=== PATIENT | male | born 1950 | race Caucasian/White ===

== ENCOUNTER 2022-05-12 00:12 | Emergency (ER) | payer MEDICARE, SELFPAY ==
--- NOTE | 2022-05-12 00:36 | XRR_ITS ---
PROCEDURE INFORMATION: Exam: XR Right Femur Exam date and time: 05/12/2022 2:35 AM Age: 72 years old Clinical indication: Pain; Thigh; Right; Additional info: Trauma TECHNIQUE: Imaging protocol: Radiologic exam of the Right femur. Views: 2 views. COMPARISON: No relevant prior studies available. FINDINGS: Bones/joints: There is normal alignment without fractures or dislocations. The visualized adjacent knee region shows small degenerative osteophytes and degenerative changes. The visualized hip region shows [id number] hip joint space narrowing with small osteophytes, suggestive of osteoarthritic change. Moderate visualized symphysis pubis degenerative changes are seen. Soft tissues: There is no soft tissue swelling or radiopaque foreign bodies. Notes: If there is further concern, recommend follow-up radiographs or bone scan for complete assessment. XR/XR femur RT min 2V* [id number] IMPRESSION: No fractures or dislocation of the right femur.
--- NOTE | 2022-05-12 00:36 | XRR_ITS ---
PROCEDURE INFORMATION: Exam: XR Right Knee Exam date and time: 05/12/2022 2:41 AM Age: 72 years old Clinical indication: Pain; Knee; Right; Additional info: Trauma TECHNIQUE: Imaging protocol: Radiologic exam of the Right knee. Views: 3 views. AP Obilque Lateral COMPARISON: No relevant prior studies available. FINDINGS: Bones/joints: There are 3 compartment small degenerative osteophytes with some tibial spine degenerative osteophytes. There are no fractures or dislocations. There are no joint bodies. No joint effusion. Soft tissues: There are no radiopaque foreign bodies. Notes: If there is further concern, recommend follow-up radiographs or MRI for complete assessment. XR/XR knee RT 3V* [id number] IMPRESSION: No fracture or dislocation of the right knee.
[2022-05-12 01:35] VITALS: BP 125/52; PULSE 51; RESP 18; TEMP 36.6; O2SAT 98; BMI 43.8
--- NOTE | 2022-05-12 09:58 | ED_ITS ---
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 Pt dnies hitting his head or any LOC. Pt is not on blood thinners. 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 Associated symptoms: Denies abdominal pain, back pain, chest pain, chills, confusion, dental pain, diaphoresis, dizziness, fever(s), headache(s), nausea, syncope or vomiting Review of Systems Const: Denies: fever(s), chills, body aches, change in appetite, change in weight, fatigue, malaise or diaphoresis Eyes: Denies: change in vision, blurry vision, blind spots, photophobia, eye discomfort, eye discharge, eye redness, floaters or seeing flashes ENMT: Denies: throat pain, uvular edema, enlarged tonsils, odynophagia, hoarseness, mouth pain, swelling of lips/tongue, oral sores, bleeding gums, dental pain, dry mouth, ear or mastoid pain, ear discharge, change in hearing, tinnitus, disequilibrium, nasal discharge, nasal congestion, post nasal drip or sinus pain Card: Denies: chest pain, palpitations, irregular heart rhythm, edema, swelling of feet/ankles, lightheadedness, syncope, pre-syncope, dyspnea on exertion, orthopnea, leg pain with exertion or acrocyanosis Resp: Denies: dyspnea, productive cough, non-productive cough, wheezing, stri linnea, pain on inspiration, change in phlegm color, hemoptysis or chest congestion GI: Denies: abdominal pain, nausea, vomiting, hematemesis, dysphagia, diarrhea, constipation, GI cramping, change in bowel habits or rectal pain : Denies: flank pain, dysuria, urinary frequency, urinary urgency, urinary hesitancy or hematuria Musc: Reports: extremity pain; Denies: neck pain, back pain, extremity swelling, joint pain, joint swelling, joint redness, joint warmth or deformity Skin/Breast: Denies: rash, pruritus, erythema, sores, new lesions, changes in skin color or dry skin Neuro: Denies: headache(s), numbness in extremities, weakness in extremities, sensory changes, lack of coordination, difficulty walking, frequent falls, dizziness, vertigo, confusion, behavioral changes, Slurred speech present, difficulty communicating thoughts or seizure-like activity Psych: Denies: anxiety, depression, suicidal ideation or homicidal ideation Endo: Denies: polyuria, polydipsia, tired all the time, cold intolerance, excessive sweating, flushing, hot flashes or heat intolerance Isaac/Lymph: Denies: easy bruising, easy bleeding, petechiae, purpura, enlarged lymph nodes or tender lymph nodes All/Imm: Denies: urticaria, throat swelling, tongue swelling, facial swelling, acute wheezing or itchy eyes Physical Exam Const: COMMON NORMALS: no acute distress, average body habitus, patient oriented x3, no limitations, healthy appearing, alert and well nourished HENMT: COMMON NORMALS: normocephalic, atraumatic, hearing grossly normal bilaterally, external ears normal, EAC's normal, TM's normal bilaterally, Normal external nose present, Normal nasal mucous membranes and turbinates present, moist oral mucous membranes, oropharynx normal, dentition normal and gingiva normal HEAD & SCALP: normocephalic and atraumatic NOSE: Normal external nose present and Normal nasal mucous membranes and turbinates present E XTERNAL EAR: Yes external ears normal EXTERNAL AUDITORY CANAL: EAC's normal TYMPANIC MEMBRANE: TM's normal bilaterally THROAT: no uvular edema Neck/C-Spine: COMMON NORMALS: full ROM, no lymphadenopathy, supple, no meningeal signs, no JVD, Thyroid normal and No carotid bruits THYROID: Thyroid normal Chest: COMMONS NORMALS: normal inspection of the chest, normal palpation of entire chest wall, normal inspection of the breasts and normal palpation of the breasts Breast/axilla inspection: Yes normal inspection of the breasts TRISH AST/AXILLA PALPATION: Yes normal palpation of the breasts Resp: COMMON NORMALS: normal respiratory effort, No retractions, No use of a ccessory muscles, clear to auscultation bilaterally and percussion normal AUSCULTATION: clear to auscultation bilaterally PERCUSSION: percussion normal Cardio: COMMON NORMALS: no JVD, regular rate and regular rhythm RATE: regular rate RHYTHM: regular rhythm : COMMON NORMALS: Yes no CVA tenderness BLADDER/KIDNEY EXAM: Yes no CVA tenderness Back/Pelvis: COMMON NORMALS: no CVA tenderness, thoracic and lumbar spine normal to inspection, no thoracic nor lumbar tenderness, thoraco-lumbar ROM normal and straight leg raise negative bilaterally Extremity: OTHER: tenderness noted to right medial aspect of thigh and right knee Neuro: COMMON NORMALS: patient oriented x3 SENSORIUM/ORIENTATION: Yes alert MENINGEAL SIGNS: Yes no meningeal signs Course Vital Signs: Vital signs: Vital Signs Temperature 97.8 F 05/12/22 01:35 Pulse Rate 51 L 05/12/22 01:35 Respiratory Rate 18 05/12/22 01:35 Blood Pressure 125/52 05/12/22 01:35 Pulse Oximetry 98 05/12/22 01:35 MDM - Trauma Medical Decision Making Patient is well appearing non toxic and in no acute distress. 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 Pt dnies hitting his head or any LOC. Pt is not on blood thinners. 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 Pt is NVI distally. will dc home Lab Data Radiology Impressions Femur X-Ray 05/12/22 00:36 IMPRESSION: No fractures or dislocation of the right femur. Knee X-Ray 05/12/22 00:36 IMPRESSION: No fracture or dislocation of the right knee. 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
== END 2022-05-12 02:52 | disposition home or self-care (01) ==
PROVIDERS: Emergency Provider Registered Nurse
DX: S70.11XA Contusion of right thigh, initial encounter (principal); V84.5XXA Driver of special agricultural vehicle injured in nontraffic accident, initial encounter
CPT/HCPCS: 73552; 73562; 99283

== ENCOUNTER 2023-04-07 10:29 | Outpatient (CLI) | payer MEDICARE, SELFPAY ==
--- NOTE | 2023-04-07 10:55 | XRR_ITS ---
PROCEDURE INFORMATION: Exam: XR Right Hand Exam date and time: 04/07/2023 11:01 AM Age: 73 years old Clinical indication: Pain and injury or trauma; Other: Caught falling cabinet; Sprain or strain; Right; Injury date: 04/04/23; Injury details: Caught a falling cabinet. RT hand/wrist pain with swelling x Friday; Additional info: R hand pain TECHNIQUE: Imaging protocol: Radiologic exam of the right hand. Views: 1 or 2 views. COMPARISON: No relevant prior studies available. FINDINGS: Bones/joints: No fracture. The joint spaces are well maintained. Degenerative joint space narrowing in the proximal interphalangeal joints. Soft tissues: Unremarkable. XR/XR hand RT 2V [id number] IMPRESSION: No evidence of acute fracture or dislocation.
== END 2023-04-07 10:30 | disposition home or self-care (01) ==
PROVIDERS: PCP Nurse Practitioner Family; Visit Provider Nurse Practitioner Family
DX: M79.641 Pain in right hand (principal)
CPT/HCPCS: 73120

== ENCOUNTER → 2023-05-13 10:52 | Outpatient (BNVA) | payer MEDICARE, SELFPAY | PROVIDERS: PCP Nurse Practitioner Family; Visit Provider Surgery | DX: R19.5 Other fecal abnormalities (principal) | CPT/HCPCS: 99204 ==

== ENCOUNTER 2023-08-06 06:00 | Outpatient (RCR) | payer MEDICARE, SELFPAY | END 2023-08-07 23:59 | disposition home or self-care (01) | LOC: TPT 06:00 | PROVIDERS: PCP Nurse Practitioner Family; Visit Provider Nurse Practitioner Family | DX: M79.604 Pain in right leg (principal) | CPT/HCPCS: 97162 ==

== ENCOUNTER 2023-08-07 07:00 | Day surgery (SDC) | payer MEDICARE, SELFPAY ==
--- NOTE | 2023-08-07 06:46 | W.PM.OPSFHP ---
Same Day Surgery H&P Indication for Procedure/HPI DATE OF PROCEDURE: August 07, 2023 CHIEF COMPLAINT/INDICATIONFOR SURGICAL PROCEDURE: positive FOBT PREOP DIAGNOSIS: GI Bleeding PLANNED PROCEDURE: Operation Date: 08/07/23 08:00 Proposed Procedures p Colonoscopy 13568,R19.5(Not Applicable) - Michelet Prieto MD Medications/Allergies* Home Medications Medication Instructions Recorded Confirmed Type atorvastatin 40 mg tablet 40 mg PO DAILY 08/04/23 08/04/23 History betamethasone dipropionate 0.05 % 1 applic topical BID PRN Outbreak 08/04/23 08/04/23 History topical ointment cholecalciferol (vitamin D3) 25 25 mcg PO DAILY 08/04/23 08/04/23 History mcg (1,000 unit) tablet (Vitamin D3) citalopram 20 mg tablet 20 mg PO DAILY 08/04/23 08/04/23 History cyanocobalamin (vitamin B-12) 25 25 mcg PO DAILY 08/04/23 08/04/23 History mcg tablet cyclobenzaprine 5 mg tablet 5 mg PO TID PRN Spasms 08/04/23 08/04/23 History glipizide 5 mg tablet 5 mg PO BID 08/04/23 08/04/23 History hydrochlorothiazide 25 mg tablet 25 mg PO DAILY 08/04/23 08/04/23 History lisinopril 5 mg tablet 5 mg PO DAILY 08/04/23 08/04/23 History magnesium citrate 100 mg tablet 100 mg PO DAILY 08/04/23 08/04/23 History metformin 500 mg tablet 500 mg PO BID 08/04/23 08/04/23 History omega-3 fatty acids-vitamin E 2 cap PO DAILY 08/04/23 08/04/23 History 1,000 mg capsule omeprazole 20 mg capsule,delayed 20 mg PO DAILY 08/04/23 08/04/23 History release tamsulosin 0.4 mg capsule 0.4 mg PO BEDTIME 08/04/23 08/04/23 History triamcinolone acetonide 0.1 % 1 applic topical BID PRN Outbreak 08/04/23 08/04/23 History topical ointment vitamin E 400 unit tablet 400 unit PO DAILY 08/04/23 08/04/23 History Allergies/Adverse Reactions Allergy/AdvReac Type Severity Reaction Status Date / Time No Known Allergies Allergy Verified 11/27/23 12:14 Pertinent Exam Findings alert, oriented x 3, clear to auscultation bilaterally and regular rate & rhythm Recommendations Surgery/Procedure today Coding Level of Care Code Acute Code for Chg Fwjohn
[2023-08-07 07:13] VITALS: BMI 41.8
[2023-08-07 07:17] VITALS: BP 142/72; PULSE 56; RESP 18; TEMP 36.2; O2SAT 98
[2023-08-07] MEDS: sodium chloride 0.9% 1,000 ML 30 ML IV (07:31)
[2023-08-07 07:35] LABS: Glucose Point of Care 119 mg/dL (70-110)
--- NOTE | 2023-08-07 07:58 | ANES.PREANE2 ---
Pre-Anesthetic Assessment Height/Weight: Height 1.73 m Weight 124.738 kg Temp Pulse Resp BP Pulse Ox O2 Del Method 97.1 F L 56 L 18 142/72 98 Room Air 08/07/23 07:17 08/07/23 07:17 08/07/23 07:17 08/07/23 07:17 08/07/23 07:17 08/07/23 07:17 Preop Diagnosis: GI Bleeding Operation Date: 08/07/23 08:00 Proposed Procedures p Colonoscopy 68955,R19.5(Not Applicable) - Michelet Prieto MD Familial anesthetic complications: none Was Beta Óscar taken within 24 hours: N/A Was Clonidine taken within 24 hours: N/A Last intake: Intake Last Liquid Date 08/06/23 Last Liquid Time 22:30 Last Solid Date 08/05/23 Last Solid Time 17:00 Social No alcohol and No tobacco Exam alert and oriented x 3 Airway Submandibular: within normal limits Cervical ROM: within normal limits Mallampati: Class I Dentition: partials (on top, glued in) Pulmonary None reported CV/HEM Hypertension None reported Hepatic None reported GI Gastroesophageal Reflux Disease Metabolic Diabetes Mellitus and Morbid Obesity [facility] [place] None reported Anesthetic Plan ASA status: 3 Anesthesia: Anesthesia Evaluation, General and MAC Medications/Allergies Home Medications Medication Instructions Recorded Confirmed Last Taken Type atorvastatin 40 mg tablet 40 mg PO DAILY 08/04/23 08/04/23 08/06/23 History betamethasone dipropionate 0.05 % 1 applic topical BID PRN Outbreak 08/04/23 08/04/23 08/04/23 History topical ointment cholecalciferol (vitamin D3) 25 25 mcg PO DAILY 08/04/23 08/04/23 08/06/23 History mcg (1,000 unit) tablet (Vitamin D3) citalopram 20 mg tablet 20 mg PO DAILY 08/04/23 08/04/23 08/06/23 History cyanocobalamin (vitamin B-12) 25 25 mcg PO DAILY 08/04/23 08/04/23 08/06/23 History mcg tablet cyclobenzaprine 5 mg tablet 5 mg PO TID PRN Spasms 08/04/23 08/04/23 08/04/23 History glipizide 5 mg tablet 5 mg PO BID 08/04/23 08/04/23 08/06/23 History hydrochlorothiazide 25 mg tablet 25 mg PO DAILY 08/04/23 08/04/23 08/06/23 History lisinopril 5 mg tablet 5 mg PO DAILY 08/04/23 08/04/23 08/06/23 History magnesium citrate 100 mg tablet 100 mg PO DAILY 08/04/23 08/04/23 08/06/23 History metformin 500 mg tablet 500 mg PO BID 08/04/23 08/04/23 08/06/23 History omega-3 fatty acids-vitamin E 2 cap PO DAILY 08/04/23 08/04/23 08/06/23 History 1,000 mg capsule omeprazole 20 mg capsule,delayed 20 mg PO DAILY 08/04/23 08/04/23 08/06/23 History release tamsulosin 0.4 mg capsule 0.4 mg PO BEDTIME 08/04/23 08/04/23 08/06/23 History triamcinolone acetonide 0.1 % 1 applic topical BID PRN Outbreak 08/04/23 08/04/23 08/04/23 History topical ointment vitamin E 400 unit tablet 400 unit PO DAILY 08/04/23 08/04/23 08/06/23 History Allergies Allergy/AdvReac Type Severity Reaction Status Date / Time No Known Allergies Allergy Verified 08/04/23 12:14 Current Medications Generic Name Dose Route Start Last Admin Trade Name Freq PRN Reason Stop Dose Admin Sodium Chloride 1,000 mls @ 30 mls/hr 08/07/23 07:15 08/07/23 07:31 Sodium Chloride 0.9% IV 08/08/23 07:14 30 mls/hr .Q24H SUSSY Administration Data Anesthesia Cardiac Studies: No Data to Display
[2023-08-07 08:34] VITALS: BP 100/54; PULSE 60; RESP 18; TEMP 36.8; O2SAT 98
--- NOTE | 2023-08-07 08:37 | ANE.PACU2 ---
Inpatient post-anesthesia follow up: Airway intact: Yes Vital signs: Temperature 97.1 F Pulse Rate 56 Respiratory Rate 18 Blood Pressure 142/72 Pulse Oximetry 98 Oxygen Delivery Me thod Room Air Oxygen Flow Rate Fraction of Inspir ed Oxygen Hydration adequate: Yes Nausea and vomiting: No Pain level: 1 Mental status: Baseline
[2023-08-07 08:59] VITALS: BP 149/62; PULSE 54; RESP 18; O2SAT 100
== END 2023-08-07 09:14 | disposition home or self-care (01) ==
PROVIDERS: PCP Nurse Practitioner Family; Visit Provider Surgery
PROC: 0DJD8ZZ Inspection of Lower Intestinal Tract, Via Natural or Artificial Opening Endoscopic (ICD-10-PCS; CPT 45378; principal; 2023-08-07 08:00)
DX: R19.5 Other fecal abnormalities (principal); K64.8 Other hemorrhoids; D12.2 Benign neoplasm of ascending colon; I10 Essential (primary) hypertension; K21.9 Gastro-esophageal reflux disease without esophagitis; E11.9 Type 2 diabetes mellitus without complications; E66.01 Morbid (severe) obesity due to excess calories; Z68.41 Body mass index [BMI] 40.0-44.9, adult
CPT/HCPCS: 36416; 45385; 82962; 88305; J2704; J7030

== ENCOUNTER 2023-08-08 06:00 | Outpatient (RCR) | payer MEDICARE, SELFPAY | END 2023-09-07 23:59 | disposition home or self-care (01) | LOC: TPT 06:00 | PROVIDERS: PCP Nurse Practitioner Family; Visit Provider Nurse Practitioner Family | DX: M79.604 Pain in right leg (principal) | CPT/HCPCS: 97110 ==

== ENCOUNTER → 2023-08-15 09:41 | Outpatient (BNVA) | payer MEDICARE, SELFPAY | PROVIDERS: PCP Nurse Practitioner Family; Visit Provider Surgery | DX: Z09 Encounter for follow-up examination after completed treatment for conditions other than malignant neoplasm (principal) | CPT/HCPCS: 99213 ==

== ENCOUNTER 2023-09-08 06:00 | Outpatient (RCR) | payer MEDICARE, SELFPAY | END 2023-10-08 23:59 | disposition home or self-care (01) | LOC: TPT 06:00 | PROVIDERS: PCP Nurse Practitioner Family; Visit Provider Nurse Practitioner Family | DX: M79.604 Pain in right leg (principal) | CPT/HCPCS: 97110 ==

== ENCOUNTER 2023-10-09 06:00 | Outpatient (RCR) | payer MEDICARE, SELFPAY | END 2023-11-06 23:59 | disposition home or self-care (01) | LOC: TPT 06:00 | PROVIDERS: PCP Nurse Practitioner Family; Visit Provider Nurse Practitioner Family | DX: M79.604 Pain in right leg (principal) | CPT/HCPCS: 97110 ==

== ENCOUNTER → 2024-02-06 08:17 | Outpatient (BNVA) | payer MEDICARE, SELFPAY | PROVIDERS: PCP Nurse Practitioner Family; Visit Provider Dermatology | DX: D48.5 Neoplasm of uncertain behavior of skin (principal); L82.1 Other seborrheic keratosis; D18.01 Hemangioma of skin and subcutaneous tissue; S80.861A Insect bite (nonvenomous), right lower leg, initial encounter; X58.XXXA Exposure to other specified factors, initial encounter | CPT/HCPCS: 10120; 11102; 17000; 99203 ==

== ENCOUNTER → 2024-03-08 14:05 | Outpatient (BNVA) | payer MEDICARE, SELFPAY | PROVIDERS: PCP Nurse Practitioner Family; Visit Provider Dermatology | DX: C44.42 Squamous cell carcinoma of skin of scalp and neck (principal) | CPT/HCPCS: 13121; 17311 ==

== ENCOUNTER → 2024-08-11 08:35 | Outpatient (BNVA) | payer MEDICARE, SELFPAY | PROVIDERS: PCP Nurse Practitioner Family; Visit Provider Nurse Practitioner Family | DX: D36.11 Benign neoplasm of peripheral nerves and autonomic nervous system of face, head, and neck (principal); B00.1 Herpesviral vesicular dermatitis; Z08 Encounter for follow-up examination after completed treatment for malignant neoplasm; Z85.828 Personal history of other malignant neoplasm of skin; D48.5 Neoplasm of uncertain behavior of skin; L57.0 Actinic keratosis | CPT/HCPCS: 11102; 17000; 99214 ==

== ENCOUNTER → 2024-12-15 08:11 | Outpatient (BNVA) | payer MEDICARE, SELFPAY | PROVIDERS: PCP Nurse Practitioner Family; Visit Provider Dermatology | DX: L82.1 Other seborrheic keratosis (principal); B00.1 Herpesviral vesicular dermatitis; S00.01XA Abrasion of scalp, initial encounter; L57.0 Actinic keratosis; Z08 Encounter for follow-up examination after completed treatment for malignant neoplasm; Z85.828 Personal history of other malignant neoplasm of skin; D48.5 Neoplasm of uncertain behavior of skin; X58.XXXA Exposure to other specified factors, initial encounter | CPT/HCPCS: 17281; 99214 ==

== ENCOUNTER → 2025-07-28 14:03 | Outpatient (BNVA) | payer MEDICARE, SELFPAY | PROVIDERS: PCP Nurse Practitioner Family; Visit Provider Nurse Practitioner Family | DX: L30.9 Dermatitis, unspecified (principal); B00.1 Herpesviral vesicular dermatitis; L57.8 Other skin changes due to chronic exposure to nonionizing radiation; L81.4 Other melanin hyperpigmentation; D22.39 Melanocytic nevi of other parts of face; Z08 Encounter for follow-up examination after completed treatment for malignant neoplasm; Z85.828 Personal history of other malignant neoplasm of skin; L57.0 Actinic keratosis | CPT/HCPCS: 17000; 99213 ==